=== PATIENT | male | born 1985 ===

== ENCOUNTER → 2018-09-26 | Outpatient (CLI) | payer BC ==
[2018-09-26 17:44] LABS: BASO % 0.4 % (0.0-2.0); EOS % 0.8 % (0-4.0); GRAN # 2.5 (1.4-6.5); GRAN % 49.6 % (42.2-75.2); HEMATOCRIT 38.5 % (42.0-52.0); LYMPH # 1.9 (1.2-3.4); LYMPH % 37.3 % (20.0-51.0); MEAN CELL VOLUME 88 fl (80.0-100.0); MEAN CORPUSCULAR HEMOGLOBIN 30 pg (27.0-31.0); MEAN CORPUSCULAR HGB CONC 34 g/dl (33.0-37.0); MEAN PLATELET VOLUME 10.1 fl (7.4-10.4); MONO # 0.6 (0.1-0.6); MONO % 11.5 % (1.7-9.3); PLATELET COUNT 224 K/mm3 (130-400); RED BLOOD COUNT 4.39 M/mm3 (4.20-5.60); REDCELL DISTRIBUTION WIDTH-CV 11.9 % (11.5-14.5)
[2018-09-27 12:34] LABS: HEPATITIS B SURFACE ANTIBODY 6.9 (())
== END ==
LOC: ZCOL.LAB 16:51
PROVIDERS: Family Medicine
DX: D64.9 Anemia, unspecified (principal); Z78.9 Other specified health status

== ENCOUNTER → 2018-10-03 | Outpatient (CLI) | payer BC | LOC: COL.LAB 17:48 | DX: D22.9 Melanocytic nevi, unspecified (principal) ==

== ENCOUNTER 2021-02-07 21:53 | Emergency (ER) | payer BC ==
[~2021-02-07] VITALS: Ht 172.7 cm; Wt 65.9 kg
[2021-02-07 22:42] VITALS: TEMP 98.4
[2021-02-07 23:07] LABS: BASO % 0.1 % (0.0-2.0); EOS % 0.2 % (0-4.0); GRAN # 7.8 (1.4-6.5); GRAN % 80.5 % (42.2-75.2); HEMATOCRIT 42.2 % (42.0-52.0); HEMOGLOBIN 14.7 g/dl (13.5-18.0); LYMPH % 10.2 % (20.0-51.0); MEAN CELL VOLUME 85 fl (80.0-100.0); MEAN CORPUSCULAR HEMOGLOBIN 30 pg (27.0-31.0); MEAN CORPUSCULAR HGB CONC 35 g/dl (33.0-37.0); MEAN PLATELET VOLUME 9.7 fl (7.4-10.4); MONO # 0.8 (0.1-0.6); MONO % 8.7 % (1.7-9.3); PLATELET COUNT 178 K/mm3 (130-400); RED BLOOD COUNT 4.97 M/mm3 (4.20-5.60); REDCELL DISTRIBUTION WIDTH-CV 11.7 % (11.5-14.5)
[2021-02-07 23:22] LABS: C-REACTIVE PROTEIN 0.8 mg/dL (0.0-0.9); CALCIUM 9.8 mg/dL (8.4-10.2); CREATININE, serum 0.96 (0.66-1.25); POTASSIUM 4.2 mmol/L (3.4-5.0); TOTAL PROTEIN 8.6 gm/dL (6.4-8.2)
[2021-02-08 03:25] VITALS: BP 132/70; PULSE 78
== END 2021-02-08 03:25 | disposition home or self-care (01) ==
LOC: COL.ER 21:53
PROVIDERS: Physician Assistant
DX: R10.10 Upper abdominal pain, unspecified (principal); Z88.2 Allergy status to sulfonamides; Z88.1 Allergy status to other antibiotic agents; Z90.49 Acquired absence of other specified parts of digestive tract
CPT/HCPCS: C9113; J2405; J7030; Q9967